=== PATIENT | male | born 1985 | race Two or more races ===

== ENCOUNTER 2024-11-07 17:33 | Emergency (ER) | payer MEDICARE, OTHER ==
[~2024-11-07] VITALS: Ht 177.8 cm; Wt 86.2 kg
[2024-11-07 17:43] VITALS: BP 116/76; TEMP 98.1; O2SAT 98
[2024-11-07] MEDS ORDERED: HYDR30CR79 TP (18:23)
[2024-11-07] MEDS ORDERED: DOCU-141 PO (18:24)
== END 2024-11-07 18:27 | disposition home or self-care (01) ==
LOC: ER 17:42
DX: K64.4 Residual hemorrhoidal skin tags (principal); K60.2 Anal fissure, unspecified; K62.89 Other specified diseases of anus and rectum